=== PATIENT | female | born 1975 | race Caucasian/White ===

== ENCOUNTER → 2018-04-13 | Day surgery (SDC) | payer MEDICARE, OTHER ==
[~2018-04-13] MED LIST: BUPIVACAINE-EPI 0.25%-1:200000 50 ML VIAL.; DESFLURANE 31 TO 60 MINUTES IH; DEXAMETHASONE SOD PHOS 20 MG/5 ML VIAL.; FAMOTIDINE 20 MG/2 ML VIAL; GLUCAGON,HUMAN RECOMBINANT 1 MG/ML VIAL.; GLYCOPYRROLATE 1 MG/5 ML VIAL.; IOHEXOL 300 MG/ML 100ML VIAL.; LIDOCAINE 1% PF 2 ML VIAL. ID; LIDOCAINE 2% PF Vial for OR 5 ML VIAL.; MIDAZOLAM HCL/PF 2 MG/2 ML VIAL.; MORPHINE SULFATE 2 MG/ML DISP.SYRIN.; NEOSTIGMINE METHYLSULFATE 5 MG/5 ML SYRINGE.; ONDANSETRON PF 4 MG/2 ML VIAL.; ONDANSETRON PF 4 MG/2 ML VIAL. IV; PROCHLORPERAZINE 10 MG/2 ML VIAL.; PROPOFOL 20 ML IV; ROCURONIUM 50 MG/5 ML VIAL.; SURGICEL HEMOSTAT 4X8 EACH.; fentaNYL PF VIAL 100 MCG/2 ML VIAL; fentaNYL PF VIAL 100 MCG/2 ML VIAL IV; oxyCODONE/APAP 5/325 1 TAB TABLET
[2018-04-13 10:10] LABS: ADD MAN DIFF? NO
[2018-04-13 10:13] LABS: BASO % 1 % (0-3); EOS # 0.1 x10^3/uL (0.0-0.7); EOS % 2 % (0-3); HEMATOCRIT 39.3 % (36.0-47.0); LYMPH # 1.7 x10^3/uL (1.0-4.8); LYMPH % 28 % (24-48); MEAN CORPUSCULAR HEMOGLOBIN 31 pg (25-35); MEAN CORPUSCULAR HGB CONC 33 g/dL (31-37); MEAN CORPUSCULAR VOLUME 94 fL (79-100); MONO # 0.4 x10^3/uL (0.0-1.1); MONO % 6 % (0-9); NEUT # 3.9 x10^3uL (1.8-7.7); NEUT % 64 % (31-73); PLATELET COUNT 300 x10^3/uL (140-400); RED BLOOD COUNT 4.18 x10^6/uL (3.50-5.40); RED CELL DISTRIBUTION WIDTH 13.3 % (11.5-14.5); WHITE BLOOD COUNT 6.1 x10^3/uL (4.0-11.0)
[2018-04-13 10:15] LABS: NEG OBC UR NEG; POS OBC UR POS; U PREG PATIENT NEGATIVE (NEG)
[2018-04-13 10:24] LABS: ANION GAP 9 (6-14); BLOOD UREA NITROGEN 9 mg/dL (7-20); CALCIUM 8.7 mg/dL (8.5-10.1); CARBON DIOXIDE 26 mmol/L (21-32); CHLORIDE 105 mmol/L (98-107); CREATININE 0.7 mg/dL (0.6-1.0); GFR 91.3; GLUCOSE 83 mg/dL (70-99); POTASSIUM 3.5 mmol/L (3.5-5.1); SODIUM 140 mmol/L (136-145)
[2018-04-13 10:29] LABS: ALBUMIN 3.3 g/dL (3.4-5.0); TOTAL BILIRUBIN 0.5 mg/dL (0.2-1.0)
[2018-04-13] MEDS: IV RINGERS,LACTATED 1000ML 1,000 ML IV (10:32)
[2018-04-13] MEDS: IOHEXOL 300 MG/ML 100ML VIAL. (11:16)
[2018-04-13] MEDS: BUPIVACAINE-EPI 0.25%-1:200000 50 ML VIAL. (11:16)
[2018-04-13] MEDS: PROCHLORPERAZINE 10 MG/2 ML VIAL. IV (12:17)
[2018-04-13] MEDS: fentaNYL PF VIAL 100 MCG/2 ML VIAL IV ×4 (12:17→13:10)
[2018-04-13] MEDS: MORPHINE SULFATE 2 MG/ML DISP.SYRIN. IV ×2 (12:33→12:49)
[2018-04-13] MEDS: oxyCODONE/APAP 5/325 1 TAB TABLET PO (13:06)
== END | disposition home or self-care (01) ==
LOC: SURG 09:39
DX: K80.10 Calculus of gallbladder with chronic cholecystitis without obstruction (principal); Z88.0 Allergy status to penicillin; J45.909 Unspecified asthma, uncomplicated; Z98.84 Bariatric surgery status; E66.9 Obesity, unspecified; K21.9 Gastro-esophageal reflux disease without esophagitis; Z98.51 Tubal ligation status; M19.90 Unspecified osteoarthritis, unspecified site; F17.200 Nicotine dependence, unspecified, uncomplicated; D64.9 Anemia, unspecified; M79.7 Fibromyalgia; Z98.890 Other specified postprocedural states
CPT/HCPCS: 36415; 74300; 80048; 81025; 82040; 82247; 85025; A7015; J0780; J1100; J1610; J1956; J2001; J2250; J2270; J2405; J2704; J2710; J3010; J3490; J7030; Q9967; S0028

== ENCOUNTER → 2021-11-09 | Outpatient (CLI) | payer MEDICARE, OTHER ==
[2018-04-13 14:31] VITALS: BP 133/70
[~2021-11-09] MED LIST changes: +ALBU2.5V8 INH; +BIOT1CAP3 PO; -BUPIVACAINE-EPI 0.25%-1:200000 50 ML VIAL.; -DESFLURANE 31 TO 60 MINUTES IH; -DEXAMETHASONE SOD PHOS 20 MG/5 ML VIAL.; -FAMOTIDINE 20 MG/2 ML VIAL; +FERR325T14 PO; -GLUCAGON,HUMAN RECOMBINANT 1 MG/ML VIAL.; -GLYCOPYRROLATE 1 MG/5 ML VIAL.; +HYDR-2680 PO; +HYDR-2765 PO; -IOHEXOL 300 MG/ML 100ML VIAL.; -LIDOCAINE 1% PF 2 ML VIAL. ID; -LIDOCAINE 2% PF Vial for OR 5 ML VIAL.; -MIDAZOLAM HCL/PF 2 MG/2 ML VIAL.; +MONT10TA49 PO; -MORPHINE SULFATE 2 MG/ML DISP.SYRIN.; -NEOSTIGMINE METHYLSULFATE 5 MG/5 ML SYRINGE.; +OMEP20TA63 PO; -ONDANSETRON PF 4 MG/2 ML VIAL.; -ONDANSETRON PF 4 MG/2 ML VIAL. IV; +OXYC1TAB15 PO; -PROCHLORPERAZINE 10 MG/2 ML VIAL.; +PROM25TA10 PO; -PROPOFOL 20 ML IV; -ROCURONIUM 50 MG/5 ML VIAL.; +SENN1TAB70 PO; -SURGICEL HEMOSTAT 4X8 EACH.; +birth control pill; -fentaNYL PF VIAL 100 MCG/2 ML VIAL; -fentaNYL PF VIAL 100 MCG/2 ML VIAL IV; -oxyCODONE/APAP 5/325 1 TAB TABLET
--- NOTE | 2021-11-09 12:33 | KCIC ---
EXAM: Bilateral knees, standing view; pelvis, single view; bilateral ankles, 2 views; bilateral hands , single view. HISTORY: Inflammatory polyarthropathy. COMPARISON: None. FINDINGS: Bilateral knees: A standing view both knees is obtained. There is severe medial compartment joint spa ce narrowing, subchondral sclerosis and spurring involving the left knee. There is mild tricompartmen t spurring of the right knee and lateral and patellofemoral compartment spurring of the left knee. Th ere is left genu varus. Pelvis: A frontal view the pelvis is obtained. There is no fracture, dislocation or subluxation. Ther e is suspected degenerative subchondral sclerosis involving the left femoral head-neck junction. The sacroiliac joints are intact. Bilateral ankles: 2 views of both ankles are obtained. There is no fracture, dislocation or subluxati on. There is a corticated ossicle inferior to the right medial malleolus, likely due to a chronic avu lsion fracture fragment or chronic fragmented spur. There is no osteochondral lesion. There are tiny plantar spurs. Bilateral hands: Frontal views of both hands are obtained. There is no fracture, dislocation or sublu xation. There is fusiform widening of the distal aspect of the left second metacarpal. There is a sma ll bone island within the distal left radius. IMPRESSION: 1. Severe medial compartment osteoarthritis of the left knee with associated genu varus. 2. Mild osteoarthritis of the right knee. 3. Mild left hip osteoarthritis. 4. No acute finding involving the ankles. There are tiny bilateral plantar spurs. 5. No acute finding involving the hands. There is fusiform widening of the left second metacarpal, th e appearance of which favors an enchondroma. Follow-up can be performed in 3 months to confirm stabil ity. Electronically signed by: Tash Ruth MD (11/09/2021 12:30 PM) [id number]
== END ==
LOC: KCIC 10:54
PROVIDERS: ATTEND Family Medicine
DX: M17.0 Bilateral primary osteoarthritis of knee (principal); M21.162 Varus deformity, not elsewhere classified, left knee; M16.12 Unilateral primary osteoarthritis, left hip; M06.4 Inflammatory polyarthropathy; M25.50 Pain in unspecified joint; M54.2 Cervicalgia; M54.9 Dorsalgia, unspecified
CPT/HCPCS: 72170; 73565; 73600; 73120-50